=== PATIENT | male | born 2000 | race Two or more races ===

== ENCOUNTER 2020-02-28 07:24 | Emergency (ER) | payer MEDICAID ==
[~2020-02-28] VITALS: Ht 165.1 cm; Wt 121.1 kg
[2020-02-28 08:35] VITALS: BP 157/97
== END 2020-02-28 09:34 | disposition home or self-care (01) ==
LOC: ER 07:24
DX: S63.501A Unspecified sprain of right wrist, initial encounter (principal); F17.210 Nicotine dependence, cigarettes, uncomplicated; X58.XXXA Exposure to other specified factors, initial encounter; Y93.89 Activity, other specified; Y92.89 Other specified places as the place of occurrence of the external cause; Y99.8 Other external cause status
CPT/HCPCS: 29125; 73110

== ENCOUNTER 2021-04-01 21:32 | Emergency (ER) | payer MEDICAID ==
[~2021-04-01] VITALS: Ht 172.7 cm; Wt 77.1 kg
[2021-04-01 22:37] VITALS: BP 135/74
[2021-04-01] MEDS ORDERED: ACETAMINOPHEN 325 MG TAB PO ONE (22:45)
[2021-04-02] MEDS ORDERED: LORazepam 0.5 MG TAB PO PRN (07:30)
[2021-04-02] MEDS ORDERED: diphenhdrAMINE HCL 25 MG CAP PO PRN (07:30)
[2021-04-02] MEDS ORDERED: traZODone HCL 50 MG TAB PO PRN (07:30)
[2021-04-02] MEDS ORDERED: HALOPERIDOL 5 MG TAB PO PRN (07:30)
[2021-04-03] MEDS ORDERED: risperiDONE 1 MG TAB PO SCH (06:00)
== END 2021-04-02 07:05 | disposition left against medical advice (07) ==
LOC: EDBD 21:32 → ER 21:33
DX: S01.81XA Laceration without foreign body of other part of head, initial encounter (principal); F32.9 Major depressive disorder, single episode, unspecified; F17.210 Nicotine dependence, cigarettes, uncomplicated; F12.10 Cannabis abuse, uncomplicated; X78.8XXA Intentional self-harm by other sharp object, initial encounter; Y93.89 Activity, other specified; Y92.89 Other specified places as the place of occurrence of the external cause; Y99.8 Other external cause status
CPT/HCPCS: 12013

== ENCOUNTER 2021-09-09 03:32 | Emergency (ER) | payer MEDICAID ==
[~2021-09-09] VITALS: Ht 170.2 cm; Wt 74.8 kg
[2021-09-09] MEDS ORDERED: LORazepam 2MG/ML-1ML VIAL IV ONE (04:15)
[2021-09-09 06:56] LABS: Basophils # (auto) 0.1 10 ^3/uL (0-0.2); Basophils % (auto) 0.9 % (0.0-2.0); Eosinophils # (auto) 0.1 10 ^3/uL (0-0.8); Eosinophils % (auto) 1.8 % (0.0-7.0); Hematocrit 47.8 % (41.0-53.0); Hemoglobin 16.9 g/dL (13.5-17.5); Lymphocytes # (auto) 2.5 10 ^3/uL (0.4-5.4); Lymphocytes % (auto) 31.2 % (10.0-50.0); Mean Corpuscular Hemoglobin 31.4 pg (28.0-32.0); Mean Corpuscular Hgb Conc. 35.5 g/dL (32.0-36.0); Mean Corpuscular Volume 88.5 fL (80.0-100.0); Monocytes # (auto) 0.6 10 ^3/uL (0-1.3); Monocytes % (auto) 7.6 % (0.0-12.0); Neutrophils # (auto) 4.6 10 ^3/uL (1.6-8.6); Neutrophils % (auto) 58.5 % (37.0-80.0); Nucleated Red Blood Cells % 1.5 %; Red Blood Cells 5.39 10^6/uL (4.5-5.90); Red Cell Distribution Width 12.9 % (11.8-14.3); White Blood Cell 7.9 10^3/uL (4.4-10.8)
[2021-09-09 07:13] LABS: BUN/Creatinine Ratio 8.5; Calcium 8.7 mg/dL (8.5-10.1); Potassium 3.3 mmol/L (3.5-5.1)
[2021-09-09 07:16] LABS: Bilirubin, Total 0.3 mg/dL (0.2-1.0); Total Protein 7.8 g/dL (6.4-8.2)
[2021-09-09 08:31] LABS: Amphetamine Screen, Urine NEGATIVE (NEGATIVE); Barbiturate Scree,Urine NEGATIVE (NEGATIVE); Benzodiazephine Screen, Urine NEGATIVE (NEGATIVE); Cannabinoid Screen, Urine POSITIVE (NEGATIVE); Cocaine Screen, Urine NEGATIVE (NEGATIVE); Opiate Scree,Urine NEGATIVE (NEGATIVE)
[2021-09-09 08:39] LABS: Phencyclidine Screen, Urine NEGATIVE (NEGATIVE)
[2021-09-09] MEDS ORDERED: SODIUM CHLORIDE 0.9% 1,000 ML IV ONE ×2 (08:45)
[2021-09-09] MEDS ORDERED: THIAMINE 100mg/ml INJ (200mg/2ml VIAL) IV ONE (08:45)
[2021-09-09 09:53] VITALS: BP 123/73
== END 2021-09-09 11:03 | disposition home or self-care (01) ==
LOC: ER 03:32
DX: F10.129 Alcohol abuse with intoxication, unspecified (principal); F12.10 Cannabis abuse, uncomplicated; F15.10 Other stimulant abuse, uncomplicated; F17.210 Nicotine dependence, cigarettes, uncomplicated; F32.9 Major depressive disorder, single episode, unspecified; Y90.8 Blood alcohol level of 240 mg/100 ml or more
CPT/HCPCS: 36415; 80053; 80307; 80320; 85025; 96361; 96374; 99285; J3411; J7030